=== PATIENT | male | born 1980 | race Caucasian/White ===

== ENCOUNTER 2022-06-25 07:55 | Outpatient (CLI) | payer OTHER, SELFPAY | END 2022-06-25 07:56 | disposition home or self-care (01) | LOC: NFLDREF 21:32 | PROVIDERS: PCP Family Medicine; Referring Provider Family Medicine; Visit Provider Family Medicine | DX: Z00.00 Encounter for general adult medical examination without abnormal findings (principal); I10 Essential (primary) hypertension; Z13.6 Encounter for screening for cardiovascular disorders | CPT/HCPCS: 80048; 80061 ==

== ENCOUNTER 2023-10-28 08:50 | Outpatient (CLI) | payer OTHER, SELFPAY | END 2023-10-28 08:51 | disposition home or self-care (01) | LOC: NFLDREF 10-30 02:33 | PROVIDERS: PCP Family Medicine; Referring Provider Family Medicine; Visit Provider Family Medicine | DX: I10 Essential (primary) hypertension (principal); Z13.220 Encounter for screening for lipoid disorders | CPT/HCPCS: 80048; 80061 ==

== ENCOUNTER 2025-01-19 08:20 | Outpatient (CLI) | payer OTHER, SELFPAY | END 2025-01-19 08:21 | disposition home or self-care (01) | LOC: NFLDREF 01-25 09:13 | PROVIDERS: PCP Family Medicine; Referring Provider Family Medicine; Visit Provider Family Medicine | DX: E78.5 Hyperlipidemia, unspecified (principal) | CPT/HCPCS: 80053; 80061 ==